=== PATIENT | male | born 1990 | race Hispanic/Latino ===

== ENCOUNTER 2018-01-18 01:20 | Emergency (ER) | payer OTHER, SELFPAY ==
[2018-01-18] MEDS ORDERED: Ketorolac Tromethamine 60 MG/2 ML VIAL ONE (02:10)
== END 2018-01-18 03:59 | disposition home or self-care (01) ==
LOC: ERS 01:20
DX: H61.22 Impacted cerumen, left ear (principal)
CPT/HCPCS: 69209; 96372; J1885

== ENCOUNTER 2024-09-30 15:17 | Emergency (ER) | payer SELFPAY ==
[2024-09-30] MEDS ORDERED: Ketorolac Tromethamine 30 MG (1 mL) VIAL ONE (15:34)
[2024-09-30] MEDS ORDERED: Acetaminophen 500 MG TAB ONE (15:34)
== END 2024-09-30 16:45 | disposition home or self-care (01) ==
LOC: ERS 15:17
DX: M54.2 Cervicalgia (principal); M54.50 Low back pain, unspecified; V49.40XA Driver injured in collision with unspecified motor vehicles in traffic accident, initial encounter
CPT/HCPCS: 72125; 72128; 72131; 96372; J1885